=== PATIENT | female | born 1965 | race Caucasian/White ===

== ENCOUNTER 2017-08-25 07:07 | Day surgery (SDC) | payer BC ==
[~2017-08-25 07:07] MED LIST: Lactated Ringers 1,000 ML IV SCH; Lidocaine 1% 2 ML ONE; Lidocaine 1%/Sod Bicarbonate in NS 8.4% 1 ML Syringe PRN; Midazolam 1 MG/ML 2 ML SDV ONE; Ondansetron 4 MG/2 ML SDV ONE; Propofol 200 MG/20 ML SDV ONE; Rocuronium 50 MG/5 ML Vial ONE; Sodium Chloride 0.9% 10 ML Syringe FLUSH PRN; ceFAZolin 1 GM Vial ONE; fentaNYL 100 MCG/2 ML SDV ONE
[2017-08-25] MEDS ORDERED: EPINEPHrine 1 MG/ML SDV ONE ×2 (07:22→09:34)
[2017-08-25] MEDS ORDERED: Ropivacaine 0.5% 5 MG/ML 30 ML SDV ONE ×2 (07:22→09:34)
--- NOTE | 2017-08-25 07:40 | PCM.PREANE ---
Preanesthetic Assessment - Anesthesia/Transfusion/Family Hx Anesthesia History: Prior Anesthesia Without Reaction Family History of Anesthesia Reaction: No Transfusion History: No Prior Transfusion(s) - Review of Systems General: No Symptoms Pulmonary: No Symptoms Cardiovascular: No Symptoms Gastrointestinal: No Symptoms Neurological: No Symptoms Other: Reports: None - Physical Assessment NPO Status Date: 08/24/17 NPO Status Time: 00:00 Pulse: 56 O2 Sat by Pulse Oximetry: 99 Respiratory Rate: 24 Blood Pressure: 131/78 Temperature: 36.7 C Height: 1.68 m Weight: 79.787 kg ASA Class: 2 Mental Status: Alert & Oriented x3 Dentition: Reports: Normal Dentition Thyro-Mental Finger Breadths: 3 Mouth Opening Finger Breadths: 3 ROM/Head Extension: Full Lungs: Clear to Auscultation, Normal Respiratory Effort Cardiovascular: Regular Rate, Regular Rhythm, No Murmurs - Lab Values: Laboratory Last Values MRSA (PCR) Negative 08/17/17 15:24 - Imaging/EKG Impressions: on chart Sinus Vitor - Allergies Allergies/Adverse Reactions: Allergies Allergy/AdvReac Type Severity Reaction Status Date / Time cephalexin [From Keflex] Allergy Hives Verified 08/24/17 15:49 - Anesthesia Plan Pre-Op Medication Ordered: None - Acknowledgements Anesthesia Type Planned: General Anesthesia, Regional Block (interscanene block for post-op pain control) Pt an Appropriate Candidate for the Planned Anesthesia: Yes Alternatives and Risks of Anesthesia Discussed w Pt/Guardian: Yes Pt/Guardian Understands and Agrees with Anesthesia Plan: Yes PreAnesthesia Questionnaire HEENT History: Reports: Impaired Vision Cardiovascular History: Reports: None Respiratory History: Reports: None Gastrointestinal History: Reports: GERD, Other (See Below) Other Gastrointestinal History: epigastric, pain, dehydration, nausea/vomiting, duodenal ulcer Genitourinary History: Reports: None METEOROLOGIST LIAISON History: Reports: Endometriosis, Other (See Below), Other OB/BYN History: pelvic pain Musculoskeletal History: Reports: None, Other (See Below) Other Musculoskeletal History: R hip pain, L knee replacement. left shoulder pain, left knee pain, left rotator cuff tear Neurological History: Reports: None Psychiatric History: Reports: Anxiety, Other (See Below) Other Psychiatric History: fatigue, insomnia, grieving Endocrine/Metabolic History: Reports: None Hematologic History: Reports: None Immunologic History: Reports: None Oncologic (Cancer) History: Reports: None Dermatologic History: Reports: None - Past Surgical History Head Surgeries/Procedures: Reports: None Cardiovascular Surgical History: Reports: None Respiratory Surgical History: Reports: None GI Surgical History: Reports: Appendectomy, Cholecystectomy, Colonoscopy Female Surgical History: Reports: Breast Reduction, Hysterectomy Male Surgical History: Reports: None Endocrine Surgical History: Reports: None Neurological Surgical History: Reports: None Musculoskeletal Surgical History: Reports: Carpal Tunnel, Joint Replacement Oncologic Surgical History: Reports: None Dermatological Surgical History: Reports: None - SUBSTANCE USE Smoking Status *Q: Never Smoker Tobacco Use Within Last Twelve Months: No Second Hand Smoke Exposure: No Days Per Week of Alcohol Use: 1 Number of Drinks Per Day: 1 Total Drinks Per Week: 1 Recreational Drug Use History: No - HOME MEDS Home Medications: Home Meds Acetaminophen/HYDROcodone [[place] 325-5 MG] 1 - 2 tab PO Q6H PRN #40 tablet 08/24 [Rx] Cyclobenzaprine [Flexeril] 10 mg PO Q8H PRN #40 tablet 08/24/17 [Rx] Escitalopram Oxalate 10 mg PO DAILY 08/24/17 [History] - CURRENT (IN HOUSE) MEDS Current Meds: Current Medications Lactated Ringer's (Ringers, Lactated) 1,000 mls @ 125 mls/hr IV ASDIRECTED VASILE Stop: 08/25/17 23:00 Clindamycin Phosphate 900 mg/ (Dextrose/Water) 106 mls @ 212 mls/hr IV ONETIME ONE Stop: 08/25/17 08:29 Lidocaine/Sodium Bicarbonate (Buffered Lidocaine 1% In Ns 8.4%) 0.25 ml .XX ONETIME PRN PRN Reason: Prior to IV Start Stop: 08/25/17 18:00 Sodium Chloride (Saline Flush) 10 ml FLUSH ASDIRECTED PRN PRN Reason: Keep Vein Open Stop: 08/25/17 18:00 Discontinued Medications Cefazolin Sodium (Ancef) Confirm Administered Dose 2 gm .ROUTE .STK-MED ONE Stop: 08/25/17 07:06 Epinephrine HCl (Adrenalin 1:1000) Confirm Administered Dose 1 mg .ROUTE .STK- MED ONE Stop: 08/25/17 07:23 Fentanyl (Sublimaze) Confirm Administered Dose 100 mcg .ROUTE .STK-MED ONE Stop: 08/25/17 07:01 Lidocaine HCl (Xylocaine-Mpf 1%) Confirm Administered Dose 6 mls @ as directed .ROUTE .STK-MED ONE Stop: 08/25/17 07:02 Midazolam HCl (Versed 1 Mg/Ml) Confirm Administered Dose 2 mg .ROUTE .STK-MED ONE Stop: 08/25/17 07:02 Ondansetron HCl (Zofran) Confirm Administered Dose 4 mg .ROUTE .STK-MED ONE Stop: 08/25/17 07:01 Propofol (Diprivan 20 Ml) Confirm Administered Dose 200 mg .ROUTE .STK-MED ONE Stop: 08/25/17 07:01 Rocuronium Clyo (Zemuron) Confirm Administered Dose 50 mg .ROUTE .STK-MED ONE Stop: 08/25/17 07:01 Ropivacaine (Naropin 0.5%) Confirm Administered Dose 30 ml .ROUTE .STK-MED ONE Stop: 08/25/17 07:23
[2017-08-25] MEDS ORDERED: Clindamycin Phosphate 900 MG in Dextrose 5% in Water 100 ML IV ONE ×2 (08:00)
[2017-08-25] MEDS ORDERED: Bupivacaine 0.25% 30 ML SDV ONE (08:00)
[2017-08-25] MEDS ORDERED: EPINEPHrine 1 MG/ML 30 ML MDV ONE (08:00)
[2017-08-25] MEDS ORDERED: Lidocaine 1% 4 ML ONE (09:34)
[2017-08-25] MEDS ORDERED: HYDROmorphone 0.5 MG/0.5 ML Syringe IVPUSH PRN (10:24)
[2017-08-25] MEDS ORDERED: fentaNYL 100 MCG/2 ML SDV IVPUSH PRN (10:24)
--- NOTE | 2017-08-25 10:27 | PCM.POSTAN ---
POST ANESTHESIA ASSESSMENT - MENTAL STATUS Mental Status: Alert, Oriented - VITAL SIGNS Pulse Rate: 83 SaO2: 96 Resp Rate: 8 Blood Pressure: 105/80 Temperature: 36.7 C - RESPIRATORY Respiratory Status: Respiratory Rate WNL, Airway Patent, O2 Saturation Stable, Supplemental Oxygen - CARDIOVASCULAR CV Status: Pulse Rate WNL, Blood Pressure Stable - GASTROINTESTINAL GI Status: No Symptoms - PAIN Pain Score: 0 - POST OP HYDRATION Hydration Status: Adequate & Stable - OBSERVATIONS Free Text/Narrative:: no anesthesia complications noted
[2017-08-25] MEDS ORDERED: Meperidine PF 50 MG/ML Syringe IVPUSH ONE (10:30)
--- NOTE | 2017-08-25 10:38 | PCM.SN ---
- Free Text/Narrative Note: Note: 08/25/2017 1035 144/84 60 100% 15 Surgeon and pt request post-op pain control for left shoulder surgery risk of block failure, facial numbness, site infection, and chronic pain discussed with pt and agreed to proceed. All standard monitors est. EKG, BP, Pulse Ox, 2L O2 and 2ml versed, 1ml fentanyl pre-op dx. left shoulder pain post-op dx left shoulder arthroscopy pt for interscalene block placement all standard monitors est. pt ID time out performed IV sedation 2ml versed, 1ml fentanyl, 2L NC O2, sterile prep and drape of left neck and shoulder U/S placed with visualization of brachial plexus from clavicle to cricoid local skin infiltration 22ga. Stimplex A insulated needle visualized at brachial plexus nerve stimulator at .9 Radha Amps stop at .4 Radha Amps with good bicep twitch with 1ml NaCl and lose of twitch neg aspirations every 5ml of 0.5% ropivacaine and 1:200,000 epi total of 30ml injected all done with U/S guidance needle withdrawn no complications noted pt tolerated procedure well block settling in start procedure at 0752 end procedure at 0820 117/70 87 100% 17
[2017-08-25 12:30] VITALS: BP 114/78
--- NOTE | 2017-08-30 07:07 | PCM.OPNOTE ---
- General Post-Op/Procedure Note Date of Surgery/Procedure: 08/25/17 Operative Procedure(s): left shoulder video arthroscopy with rotator cuff repair , subacromial decompression and limited debridement Pre Op Diagnosis: left shoulder rotator cuff tear with impingement Post-Op Diagnosis: Same Anesthesia Technique: General ET Tube, Regional Block Primary Surgeon: Carlos Dykes Anesthesia Provider: Darek Guerrero Pure Pak Machine Operator: Lisa Roy EBL in mLs: 5 Complications: None Condition: Good
--- NOTE | 2017-08-30 08:06 | OR ---
DATE OF OPERATION: 08/25/2017 SURGEON: Carlos Dykes MD OPERATION PERFORMED: Left shoulder video arthroscopy with rotator cuff repair, subacromial decompression, and limited debridement. PREOPERATIVE DIAGNOSIS: Left shoulder rotator cuff tear with impingement. POSTOPERATIVE DIAGNOSIS: Left shoulder rotator cuff tear with impingement. ANESTHESIA: General endotracheal intubation with regional interscalene block. ANESTHESIA PROVIDER: Darek Guerrero CRNA. [employer] ADMINISTRATOR: Lisa Roy PA-C. ESTIMATED BLOOD LOSS: 5 mL. COMPLICATIONS: None. CONDITION: Stable. DESCRIPTION OF PROCEDURE: The patient was identified in the preop holding area. Proper site was marked and identified by the surgeon. The patient was taken back to the operating theater, where after adequate anesthesia, the patient was placed in the lazy right lateral decubitus position. A wedge was placed posteriorly. The patient was secured to the table. All bony prominences were well padded. At this time, the left upper extremity was sterilely prepped and draped in the usual sterile fashion. OR-wide time-out was performed. The patient received 2 grams of IV Ancef. 12 pounds of traction was then applied to the left upper extremity. At this time, a posterior incision was made and scope trocar was introduced to the glenohumeral joint. There were no signs of chondromalacia. There was noted to be significant fraying of the labrum. Subscapularis tendon was intact. Biceps tendon was intact. There was erythema, otherwise no signs of pathology throughout the joint, other than the undersurface of the rotator cuff and supraspinatus were noted to have significant thinning with a small area of full- thickness tear. At this time, attention was turned to the subacromial space. Subacromial space was identified. A limited debridement was then done of bursal tissue as well as old rotator cuff tissue. There was noted to be a small full- thickness tear in the supraspinatus near its distal attachment. At this time, this was resected back to a good edge to allow for reattachment. A good bony bleeding bed was then prepared as well. At this time, it was decided that a lateral-only repair could possibly be done. At this time, FiberTape was placed in a horizontal mattress stitch fashion through the tear. 4.75 mm Arthrex SwiveLock anchor was then placed out laterally and attention was applied to the FiberTape. The Arthrex SwiveLock anchor was then placed in the bone and it was noted to have good tightened repair of the rotator cuff. There was noted to be a small anterior portion that still had a small step-off. So, at this time, a second 4.75 SwiveLock anchor was placed out laterally. A limb of the FiberWire was then placed through the tear and then was tied with the use of an arthroscopic knot pusher. It was found to have adequate complete watertight repair of the entire tear at this time. At this time, the patient was noted to have a type 2/3 acromion with downsloping of the anterior portion of the acromion. At this time, a 4.0 full-radius bur was used for resection of the undersurface of the clavicle down to a type 1 acromion. It was noted to have significant improvement of its slope. At this time, excess saline was drained from the shoulder. 3-0 nylon simple suture was used for closure of the skin. The patient was placed in a sterile soft dressing and a pillow sling, and sent to PACU in a stable condition. Note: Assist was needed in this case secondary to extra hands for holding the patient and retraction throughout the case as well as closure. NEVILLE /[id number] HAZEL
== END 2017-08-25 13:15 | disposition home or self-care (01) ==
LOC: JD.SDS 07:07
PROVIDERS: ATTEND Orthopaedic Surgery
DX: M75.102 Unspecified rotator cuff tear or rupture of left shoulder, not specified as traumatic (principal); M75.42 Impingement syndrome of left shoulder; F41.9 Anxiety disorder, unspecified; G89.29 Other chronic pain; M25.512 Pain in left shoulder; M25.562 Pain in left knee; M25.551 Pain in right hip; Z88.0 Allergy status to penicillin; Z88.1 Allergy status to other antibiotic agents; Z90.49 Acquired absence of other specified parts of digestive tract; Z90.710 Acquired absence of both cervix and uterus; Z96.652 Presence of left artificial knee joint; Z98.890 Other specified postprocedural states; Z78.9 Other specified health status
CPT/HCPCS: 29822; 29826; 29827; 64415; 87641; J0171; J0690; J2250; J2405; J2795; J3010; J3490; J7060; J7120; 01638; J2704

== ENCOUNTER 2021-02-08 12:08 | Inpatient (IN) | payer BC ==
[2021-02-08] MEDS ORDERED: HYDROmorphone 0.5 MG/0.5 ML Syringe IM ONE ×2 (12:28→13:48)
--- NOTE | 2021-02-08 13:23 | EDM.PDOC ---
ED HPI GENERAL MEDICAL PROBLEM - General Chief Complaint: Lower Extremity Injury/Pain Stated Complaint: FELL ON LEFT LEG Time Seen by Provider: 02/08/21 12:23 Source of Information: Reports: Patient, RN Notes Reviewed History Limitations: Reports: No Limitations - History of Present Illness INITIAL COMMENTS - FREE TEXT/NARRATIVE: Patient is a 55-year-old female who presents to the ER for the evaluation of her left leg injury. Patient not she was out last night, playing pool, when she was sitting on a stool, she is normally sure if her foot got caught in the ring of the stool, but she ended up falling forward off of the stool. She landed directly onto her left leg. She states that she has been having pain in her mid thigh since then. Does have a history of a knee replacement with revision, and a dulce placed within the left femur. States that her hip seems okay, and she is able to move her foot at the ankle without difficulty. She has been using some Advil or Aleve at home, but states the pain is not getting much better. She states is very painful to bear weight on the leg much at all. She was concerned due to the previous surgeries, that she may have rebroke something. Patient denies any other sick-like symptoms, fever/chills, cough/shortness of breath, nausea/vomiting/diarrhea. - Related Data Allergies Allergy/AdvReac Type Severity Reaction Status Date / Time cephalexin [From Keflex] Allergy Hives Verified 02/08/21 12:22 Home Meds: Home Meds Omeprazole 10 mg PO DAILY 02/08/21 [History] Vortioxetine Hydrobromide [Trintellix] 10 mg PO DAILY 02/08/21 [History] Past Medical History HEENT History: Reports: Impaired Vision Cardiovascular History: Reports: None Respiratory History: Reports: None Gastrointestinal History: Reports: GERD Other Gastrointestinal History: epigastric, pain, dehydration, nausea/vomiting, duodenal ulcer Genitourinary History: Reports: None UI SOFTWARE DEVELOPER History: Reports: Endometriosis, Other (See Below), Other UI SOFTWARE DEVELOPER History: pelvic pain Musculoskeletal History: Reports: None, Other (See Below) Other Musculoskeletal History: R hip pain, L knee replacement. left shoulder pain, left knee pain, left rotator cuff tear Neurological History: Reports: None Psychiatric History: Reports: Anxiety Other Psychiatric History: fatigue, insomnia, grieving Endocrine/Metabolic History: Reports: None Hematologic History: Reports: None Immunologic History: Reports: None Oncologic (Cancer) History: Reports: None Dermatologic History: Reports: None - Infectious Disease History Infectious Disease History: Reports: None - Past Surgical History Head Surgeries/Procedures: Reports: None Cardiovascular Surgical History: Reports: None Respiratory Surgical History: Reports: None GI Surgical History: Reports: Appendectomy, Bariatric Procedure, Cholecystectomy, Colonoscopy Female Surgical History: Reports: Breast Reduction, Hysterectomy Endocrine Surgical History: Reports: None Neurological Surgical History: Reports: None Musculoskeletal Surgical History: Reports: Arthroscopic Knee, Shoulder Surgery Oncologic Surgical History: Reports: None Dermatological Surgical History: Reports: None Social & Family History - Tobacco Use Tobacco Use Status *Q: Current Every Day Tobacco User Years of Tobacco use: 8 Packs/Tins Daily: 1 - Caffeine Use Caffeine Use: Reports: Soda Review of Systems - Review of Systems Review Of Systems: Comprehensive ROS is negative, except as noted in HPI. ED EXAM, GENERAL - Physical Exam Exam: See Below Exam Limited By: No Limitations General Appearance: Alert, WD/WN, No Apparent Distress Respiratory/Chest: No Respiratory Distress, Lungs Clear, Normal Breath Sounds, No Accessory Muscle Use, Chest Non-Tender Cardiovascular: Normal Peripheral Pulses, Regular Rate, Rhythm, No Edema Peripheral Pulses: 2+: Radial (L), Radial (R), Dorsalis Pedis (L), Dorsalis Pedis (R) Extremities: Normal Inspection, Normal Capillary Refill, Limited Range of Motion (of left leg, seems to be more difficult to bend knee. hip seems okay with ROM and ankle/foot with ROM) Neurological: Alert, Oriented, Normal Cognition, No Motor/Sensory Deficits Psychiatric: Normal Affect, Normal Mood Skin Exam: Warm, Dry, Intact, Normal Color, No Rash #1 Interpretation EKG Date: 02/08/21 Time: 15:12 Rhythm: NSR Rate (Beats/Min): 70 [place]: Normal P-Wave: Present QRS: Normal ST-T: Normal QT: Normal Comparison: NA - No Prior EKG EKG Interpretation Comments: No obvious ischemia or acute ST changes noted, reviewed by myself and Dr. Avilez. Course - Vital Signs Last Recorded V/S: Last Vital Signs Temp 97.4 F 02/08/21 12:20 Pulse 75 02/08/21 12:20 Resp 18 02/08/21 12:20 BP 144/116 H 02/08/21 12:20 Pulse Ox 100 02/08/21 12:20 - Orders/Labs/Meds Orders: Active Orders 24 hr Category Date Time Status Patient Status [ADT] Routine ADT 02/08/21 15:22 Active EKG Documentation Completion [RC] STAT Care 02/08/21 14:41 Active Peripheral IV Care [RC] . DIRECTED Care 02/08/21 14:47 Active Chest 1V Frontal [CR] Stat Exams 02/08/21 14:41 Taken Hip wo Cont Lt [CT] Stat Exams 02/08/21 13:44 Taken TYPE AND SCREEN [BBK] Stat Lab 02/08/21 14:56 Received UA W/MICROSCOPIC [URIN] Stat Lab 02/08/21 14:57 Ordered Sodium Chloride 0.9% [Normal Saline] 1,000 ml Med 02/08/21 14:47 Active IV ONETIME Sodium Chloride 0.9% [Saline Flush] Med 02/08/21 14:47 Active 10 ml FLUSH ASDIRECTED PRN Peripheral IV Insertion Adult [OM.PC] Routine Oth 02/08/21 14:47 Ordered Medication Orders Sodium Chloride (Normal Saline) 1,000 mls @ 150 mls/hr IV ONETIME ONE Stop: 02/08/21 21:26 Last Admin: 02/08/21 15:20 Dose: 150 mls/hr Documented by: SIRISHA Sodium Chloride (Sodium Chloride 0.9% 10 Ml Syringe) 10 ml FLUSH ASDIRECTED PRN PRN Reason: Keep Vein Open Last Admin: 02/08/21 15:29 Dose: 10 ml Documented by: SIRISHA Labs: Laboratory Tests 02/08/21 02/08/21 02/08/21 Range/Units 14:42 14:56 14:56 WBC 9.50 (3.98-10.04) K/mm3 RBC 4.73 (3.98-5.22) M/mm3 Hgb 10.6 L D (11.2-15.7) gm/dl Hct 35.5 (34.1-44.9) % MCV 75.1 L (79.4-94.8) fl MCH 22.4 L (25.6-32.2) pg MCHC 29.9 L (32.2-35.5) g/dl RDW Std Deviation 44.1 (36.4-46.3) fL Plt Count 479 H D (182-369) K/mm3 MPV 9.9 (9.4-12.3) fl Neut % (Auto) 72.5 H (34.0-71.1) % Lymph % (Auto) 18.3 L (19.3-51.7) % [place] % (Auto) 8.4 (4.7-12.5) % Eos % (Auto) 0.2 L (0.7-5.8) Baso % (Auto) 0.4 (0.1-1.2) % Neut # (Auto) 6.88 H (1.56-6.13) K/mm3 Lymph # (Auto) 1.74 (1.18-3.74) K/mm3 [place] # (Auto) 0.80 H (0.24-0.36) K/mm3 Eos # (Auto) 0.02 L (0.04-0.36) K/mm3 Baso # (Auto) 0.04 (0.01-0.08) K/mm3 Manual Slide Review Abnormal smear PT 9.9 (9.7-12.0) SECONDS INR < 0.93 APTT 24.0 (21.7-31.4) SECONDS Sodium (136-145) mEq/L Potassium (3.5-5.1) mEq/L Chloride (98-107) mEq/L Carbon Dioxide (21-32) mEq/L Anion Gap (5-15) BUN (7-18) mg/dL Creatinine (0.55-1.02) mg/dL Est Cr Clr Drug Dosing Estimated GFR (MDRD) (>60) mL/min BUN/Creatinine Ratio (14-18) Glucose (74-106) mg/dL Calcium (8.5-10.1) mg/dL Total Bilirubin (0.2-1.0) mg/dL AST (15-37) U/L ALT (14-59) U/L Alkaline Phosphatase (46-116) U/L Total Protein (6.4-8.2) g/dl Albumin (3.4-5.0) g/dl Globulin gm/dL Albumin/Globulin Ratio (1-2) Influenza Type A RNA Negative (NEGATIVE) Influenza Type B RNA Negative (NEGATIVE) SARS-CoV-2 RNA (NOA) Positive H (NEGATIVE) Blood Type 02/08/21 02/08/21 Range/Units 14:56 14:56 WBC (3.98-10.04) K/mm3 RBC (3.98-5.22) M/mm3 Hgb (11.2-15.7) gm/dl Hct (34.1-44.9) % MCV (79.4-94.8) fl MCH (25.6-32.2) pg MCHC (32.2-35.5) g/dl RDW Std Deviation (36.4-46.3) fL Plt Count (182-369) K/mm3 MPV (9.4-12.3) fl Neut % (Auto) (34.0-71.1) % Lymph % (Auto) (19.3-51.7) % [place] % (Auto) (4.7-12.5) % Eos % (Auto) (0.7-5.8) Baso % (Auto) (0.1-1.2) % Neut # (Auto) (1.56-6.13) K/mm3 Lymph # (Auto) (1.18-3.74) K/mm3 [place] # (Auto) (0.24-0.36) K/mm3 Eos # (Auto) (0.04-0.36) K/mm3 Baso # (Auto) (0.01-0.08) K/mm3 Manual Slide Review PT (9.7-12.0) SECONDS INR APTT (21.7-31.4) SECONDS Sodium 142 (136-145) mEq/L Potassium 3.7 (3.5-5.1) mEq/L Chloride 104 (98-107) mEq/L Carbon Dioxide 26 (21-32) mEq/L Anion Gap 15.7 H (5-15) BUN 7 (7-18) mg/dL Creatinine 0.8 (0.55-1.02) mg/dL Est Cr Clr Drug Dosing TNP Estimated GFR (MDRD) > 60 (>60) mL/min BUN/Creatinine Ratio 8.8 L (14-18) Glucose 98 (74-106) mg/dL Calcium 9.3 (8.5-10.1) mg/dL Total Bilirubin 0.9 (0.2-1.0) mg/dL AST 29 (15-37) U/L ALT 42 (14-59) U/L Alkaline Phosphatase 128 H (46-116) U/L Total Protein 8.2 (6.4-8.2) g/dl Albumin 4.3 (3.4-5.0) g/dl Globulin 3.9 gm/dL Albumin/Globulin Ratio 1.1 (1-2) Influenza Type A RNA (NEGATIVE) Influenza Type B RNA (NEGATIVE) SARS-CoV-2 RNA (NOA) (NEGATIVE) Blood Type A POSITIVE Meds: Medications Generic Name Dose Route Start Last Admin Trade Name Freq PRN Reason Stop Dose Admin Sodium Chloride 1,000 mls @ 150 mls/hr 02/08/21 14:47 02/08/21 15:20 Normal Saline IV 02/08/21 21:26 150 mls/hr ONETIME ONE Administration Sodium Chloride 10 ml 02/08/21 14:47 02/08/21 15:29 Sodium Chloride 0.9% 10 Ml Syringe FLUSH 10 ml ASDIRECTED PRN Administration Keep Vein Open Discontinued Medications Generic Name Dose Route Start Last Admin Trade Name Freq PRN Reason Stop Dose Admin Hydromorphone HCl 0.5 mg 02/08/21 12:28 02/08/21 12:46 Hydromorphone 0.5 Mg/0.5 Ml Syringe IM 02/08/21 12:29 0.5 mg ONETIME ONE Administration Hydromorphone HCl 0.5 mg 02/08/21 13:48 02/08/21 13:51 Hydromorphone 0.5 Mg/0.5 Ml Syringe IM 02/08/21 13:49 0.5 mg ONETIME ONE Administration - Re-Assessments/Exams Free Text/Narrative Re-Assessment/Exam: 02/08/21 13:22 Patient presents to the ER for her left leg injury. X-rays were obtained at time of triage, the patient was given 0.5 mg IM Dilaudid for ongoing pain management. We will go ahead and get a femur x-ray and a left knee x-ray for evaluation. 02/08/21 13:39 X-rays were done, and reviewed by myself and Dr. Avilez, there are no acute fractures or other bony abnormalities appreciated. However official radiology read is still pending. 02/08/21 13:48 The patient's x-rays were read by radiology, and he does question a slightly impacted subcapital fracture of the patient's left femur/hip area. We will go ahead and get a CT of her hip for further investigation, still states that she cannot bear weight on the leg due to pain. She will be given another 0.5 mg IM injection of Dilaudid. Fortunately Meño Dowling is electrical controls assembler for today's purposes after the CT has been obtained. We will call him after the fact, and see what he would want to do for management if hip does seem to be broken with an impaction fracture. 02/08/21 14:[address] does demonstrate an acute intertrochanteric fracture of the left fe mur. Preop labs have been ordered, with a EKG and a checks x-ray for clearance however she is a fairly healthy individual and has no other cardiac abnormalities. Dr. Dykes states that he would likely do her surgery in the morning and discharge her home if she is feeling well. We will go ahead and admit to his service for ongoing management. 02/08/21 15:36 Patient's labs have started to return, CBC is essentially unremarkable, metabolic panel essentially unremarkable. Her Covid screen did come back positive at today's visit however I do believe this is still testing positive from her infection back in August. She is asymptomatic, having no sick-like symptoms whatsoever. As far as I am concerned, this is lingering positive from her active infection back in August. Departure - Departure Time of Disposition: 14:58 Disposition: Refer to Observation Condition: Good Clinical Impression: Closed intertrochanteric fracture of left femur Qualifiers: Encounter type: initial encounter Fracture alignment: nondisplaced Qualified Code(s): S72.145A - Nondisplaced intertrochanteric fracture of left femur, initial encounter for closed fracture - Discharge Information Referrals: PCP,None [Primary Care Provider] - Forms: ED Department Discharge Sepsis Event Note (ED) - Evaluation Sepsis Screening Result: No Definite Risk - Focused Exam Vital Signs: Vital Signs Temp Pulse Resp BP Pulse Ox 02/08/21 12:20 97.4 F 75 18 144/116 H 100 - My Orders Last 24 Hours: My Active Orders 02/08/21 13:44 Hip wo Cont Lt [CT] Stat 02/08/21 14:41 EKG Documentation Completion [RC] STAT Chest 1V Frontal [CR] Stat 02/08/21 14:47 Peripheral IV Care [RC] . DIRECTED Sodium Chloride 0.9% [Normal Saline] 1,000 ml IV ONETIME Sodium Chloride 0.9% [Saline Flush] 10 ml FLUSH ASDIRECTED PRN Peripheral IV Insertion Adult [OM.PC] Routine 02/08/21 14:56 TYPE AND SCREEN [BBK] Stat 02/08/21 14:57 UA W/MICROSCOPIC [URIN] Stat 02/08/21 15:22 Patient Status [ADT] Routine - Assessment/Plan Last 24 Hours: My Active Orders 02/08/21 13:44 Hip wo Cont Lt [CT] Stat 02/08/21 14:41 EKG Documentation Completion [RC] STAT Chest 1V Frontal [CR] Stat 02/08/21 14:47 Peripheral IV Care [RC] . DIRECTED Sodium Chloride 0.9% [Normal Saline] 1,000 ml IV ONETIME Sodium Chloride 0.9% [Saline Flush] 10 ml FLUSH ASDIRECTED PRN Peripheral IV Insertion Adult [OM.PC] Routine 02/08/21 14:56 TYPE AND SCREEN [BBK] Stat 02/08/21 14:57 UA W/MICROSCOPIC [URIN] Stat 02/08/21 15:22 Patient Status [ADT] Routine
--- NOTE | 2021-02-08 13:40 | CR ---
Left knee: 4 views of the left knee were obtained. Comparison: No prior knee exam is available. Knee prosthesis is seen. Alignment is within normal limits. Osteopenia is present. No acute fracture, dislocation or other bony abnormality is appreciated. Impression: 1. Knee prosthesis. Osteopenia. 2. No acute abnormality is appreciated. Diagnostic code #2
--- NOTE | 2021-02-08 13:40 | CR ---
Left femur: AP and lateral views of the left femur were obtained. Comparison: No previous available Knee prosthesis is seen. Components appear aligned at the articular region. There is irregularity within the subcapital region of the left hip which is felt compatible with slightly impacted fracture. Osteopenia is present. No other acute abnormality is appreciated. Impression: 1. Left knee prosthesis. 2. Mildly impacted subcapital fracture within the left hip. Diagnostic code #3
[2021-02-08] MEDS ORDERED: Sodium Chloride 0.9% 10 ML Syringe FLUSH PRN (14:47)
[2021-02-08] MEDS ORDERED: Sodium Chloride 0.9% 1,000 ML IV ONE (14:47)
[2021-02-08 15:33] LABS: CORONAVIRUS COVID-19 NAA POSITIVE (NEGATIVE)
[2021-02-08] MEDS ORDERED: Ondansetron 4 MG/2 ML SDV IVPUSH PRN (16:33)
--- NOTE | 2021-02-08 16:58 | CR ---
Chest: Portable view of the chest was obtained. Comparison: No prior chest imaging is available. Heart size and mediastinum are normal. Lungs are clear with no acute parenchymal change. Right shoulder prosthesis is seen. Appearance of old healed left clavicle fracture is noted. Surgical clips are seen within the upper right abdomen. Impression: 1. Findings as noted above. 2. Nothing acute is seen on portable chest x-ray. Diagnostic code #2
[2021-02-08] MEDS: HYDROmorphone 0.5 MG/0.5 ML Syringe IVPUSH PRN ×2 (17:00→20:47)
[2021-02-08] MEDS ORDERED: Aluminum Hydroxide/Magnesium Hydroxide/Simethicone Susp 30 ML Cup PO ONE (20:41)
[2021-02-08] MEDS: Sodium Chloride 0.9% 1,000 ML IV SCH (21:34)
[2021-02-09] MEDS: Morphine 2 MG/ML SYRINGE IVPUSH PRN ×2 (00:37→04:43)
[2021-02-09] MEDS: Sodium Chloride 0.9% 1,000 ML IV SCH (04:20)
[2021-02-09] MEDS ORDERED: oxyCODONE 5 MG Tab PO PRN (06:54)
[2021-02-09] MEDS ORDERED: Cyclobenzaprine 10 MG Tab PO PRN (06:54)
[2021-02-09] MEDS ORDERED: Ondansetron 4 MG/2 ML SDV IVPUSH PRN (06:54)
[2021-02-09] MEDS ORDERED: Bisacodyl 5 MG Tab PO PRN (06:54)
[2021-02-09] MEDS ORDERED: Naloxone 0.4 MG/ML SDV IVPUSH PRN (06:54)
[2021-02-09] MEDS ORDERED: Magnesium Hydroxide 400 MG/5 ML Susp 30 ML Cup PO PRN (06:54)
[2021-02-09] MEDS ORDERED: Sennosides 8.6 MG Tab PO PRN (06:54)
[2021-02-09] MEDS ORDERED: ceFAZolin 2 GM in Premix Bag 1 BAG IV SCH ×2 (07:00→19:00)
[2021-02-09] MEDS ORDERED: Clindamycin Phosphate in D5W 900 MG in Premix Bag 1 BAG IV SCH ×2 (07:00)
--- NOTE | 2021-02-09 07:00 | PCM.HP.2 ---
H&P History of Present Illness - General Date of Service: 02/09/21 Admit Problem/Dx: Admission Diagnosis/Problem Admission Diagnosis/Problem Intertrochanteric fracture of left femur Source of Information: Patient History Limitations: Reports: No Limitations - History of Present Illness Initial Comments - Free Text/Narative: The patient is an otherwise healthy 55-year-old lady who has presented to the emergency department for evaluation of a left leg injury. The patient says that she was on a stool and fell off landing directly on her left leg. The patient says that she was concerned more about her knee than her hip. The patient reports that she has had significant knee surgery with replacement and revision latest in 2013. The patient has been in her usual state of health. She is only taking Trintellix and omeprazole. The patient does not use alcohol or tobacco. Onset of Symptoms: Reports: Sudden Duration of Symptoms: Reports: Hour(s):, Constant Location: Reports: Lower Extremity, Left Quality: Reports: Ache, Burning Severity: Moderate Improves with: Reports: Medication Worsens with: Reports: Movement Context: Reports: Trauma Associated Symptoms: Reports: No Other Symptoms - Related Data Allergies/Adverse Reactions: Allergies Allergy/AdvReac Type Severity Reaction Status Date / Time cephalexin [From Keflex] Allergy Hives Verified 02/08/21 12:22 Home Medications: Home Meds Omeprazole 10 mg PO DAILY 02/08/21 [History] Vortioxetine Hydrobromide [Trintellix] 10 mg PO DAILY 02/08/21 [History] Past Medical History HEENT History: Reports: Impaired Vision Other HEENT History: Glasses Cardiovascular History: Reports: None Respiratory History: Reports: None Gastrointestinal History: Reports: GERD Other Gastrointestinal History: epigastric pain, nausea/vomiting, duodenal ulcer Genitourinary History: Reports: None OFFICE SPECIALIST History: Reports: Endometriosis, Other (See Below), Other OB/BYN History: pelvic pain Musculoskeletal History: Reports: None, Other (See Below) Other Musculoskeletal History: R hip pain, L knee replacement. left shoulder pain, left knee pain, left rotator cuff tear Neurological History: Reports: None Psychiatric History: Reports: Anxiety Other Psychiatric History: fatigue, insomnia, grieving Endocrine/Metabolic History: Reports: None Hematologic History: Reports: None Immunologic History: Reports: None Oncologic (Cancer) History: Reports: None Dermatologic History: Reports: None Other Dermatologic History: Can somewhat easily get hives. - Infectious Disease History Infectious Disease History: Reports: SARS Other Infectious Disease History: Covid in August - Past Surgical History Head Surgeries/Procedures: Reports: None Cardiovascular Surgical History: Reports: None Respiratory Surgical History: Reports: None GI Surgical History: Reports: Appendectomy, Bariatric Procedure, Cholecystectomy, Colonoscopy Female Surgical History: Reports: Breast Reduction, Hysterectomy Endocrine Surgical History: Reports: None Neurological Surgical History: Reports: None Musculoskeletal Surgical History: Reports: Arthroscopic Knee, Shoulder Surgery Oncologic Surgical History: Reports: None Dermatological Surgical History: Reports: None Social & Family History - Family History Neurological: Reports: Dementia - Tobacco Use Tobacco Use Status *Q: Never Tobacco User Years of Tobacco use: 8 Packs/Tins Daily: 1 - Caffeine Use Caffeine Use: Reports: None - Recreational Drug Use Recreational Drug Use: No H&P Review of Systems - Review of Systems: Review Of Systems: See Below General: Reports: No Symptoms HEENT: Reports: No Symptoms Pulmonary: Reports: No Symptoms Cardiovascular: Reports: No Symptoms Gastrointestinal: Reports: No Symptoms Genitourinary: Reports: No Symptoms Musculoskeletal: Reports: Leg Pain Skin: Reports: No Symptoms Psychiatric: Reports: No Symptoms Neurological: Reports: No Symptoms Hematologic/Lymphatic: Reports: No Symptoms Immunologic: Reports: No Symptoms Exam - Exam Exam: See Below - Vital Signs Vital Signs: Last Vital Signs Temp 37.2 C 02/09/21 04:45 Pulse 73 02/09/21 04:45 Resp 14 02/09/21 04:45 BP 147/76 H 02/09/21 04:45 Pulse Ox 97 02/09/21 04:45 Weight: 57.742 kg - Exam Quality Assessment: No: Supplemental Oxygen General: Alert, Oriented, Cooperative HEENT: Conjunctiva Clear, EOMI, Mucosa Moist & Brutus, Posterior Pharynx Clear Neck: Supple, Trachea Midline Lungs: Clear to Auscultation, Normal Respiratory Effort Cardiovascular: Regular Rate, Regular Rhythm GI/Abdominal Exam: Normal Bowel Sounds, Soft, Non-Tender, No Distention (Female) Exam: Deferred Rectal (Female) Exam: Deferred Back Exam: Normal Inspection, Full Range of Motion Extremities: No Pedal Edema. No: Normal Inspection (Tender left knee, surgical scars,), Normal Range of Motion (Decreased range of motion left hip) Skin: Warm, Dry, Intact Neurological: Cranial Nerves Intact, Strength Equal Bilateral, Normal Speech Neuro Extensive - Mental Status: Alert, Oriented x3 Psychiatric: Alert, Normal Affect - Patient Data Lab Results Last 24 hrs: Laboratory Results - last 24 hr 02/08/21 02/08/21 02/08/21 Range/Units 14:42 14:56 14:56 WBC 9.50 (3.98-10.04) K/mm3 RBC 4.73 (3.98-5.22) M/mm3 Hgb 10.6 L D (11.2-15.7) gm/dl Hct 35.5 (34.1-44.9) % MCV 75.1 L (79.4-94.8) fl MCH 22.4 L (25.6-32.2) pg MCHC 29.9 L (32.2-35.5) g/dl RDW Std Deviation 44.1 (36.4-46.3) fL Plt Count 479 H D (182-369) K/mm3 MPV 9.9 (9.4-12.3) fl Neut % (Auto) 72.5 H (34.0-71.1) % Lymph % (Auto) 18.3 L (19.3-51.7) % Edwards % (Auto) 8.4 (4.7-12.5) % Eos % (Auto) 0.2 L (0.7-5.8) Baso % (Auto) 0.4 (0.1-1.2) % Neut # (Auto) 6.88 H (1.56-6.13) K/mm3 Lymph # (Auto) 1.74 (1.18-3.74) K/mm3 Edwards # (Auto) 0.80 H (0.24-0.36) K/mm3 Eos # (Auto) 0.02 L (0.04-0.36) K/mm3 Baso # (Auto) 0.04 (0.01-0.08) K/mm3 Manual Slide Review Abnormal smear PT 9.9 (9.7-12.0) SECONDS INR < 0.93 APTT 24.0 (21.7-31.4) SECONDS Sodium (136-145) mEq/L Potassium (3.5-5.1) mEq/L Chloride (98-107) mEq/L Carbon Dioxide (21-32) mEq/L Anion Gap (5-15) BUN (7-18) mg/dL Creatinine (0.55-1.02) mg/dL Est Cr Clr Drug Dosing Estimated GFR (MDRD) (>60) mL/min BUN/Creatinine Ratio (14-18) Glucose (74-106) mg/dL Calcium (8.5-10.1) mg/dL Total Bilirubin (0.2-1.0) mg/dL AST (15-37) U/L ALT (14-59) U/L Alkaline Phosphatase (46-116) U/L Total Protein (6.4-8.2) g/dl Albumin (3.4-5.0) g/dl Globulin gm/dL Albumin/Globulin Ratio (1-2) Urine Color (Yellow) Urine Appearance (Clear) Urine pH (5.0-8.0) Ur Specific [place] (1.005-1.030) Urine Protein (Negative) Urine Glucose (UA) (Negative) Urine Ketones (Negative) Urine Occult Blood (Negative) Urine Nitrite (Negative) Urine Bilirubin (Negative) Urine Urobilinogen (0.2-1.0) Ur Leukocyte Esterase (Negative) Urine RBC (0-5) /hpf Urine WBC (0-5) /hpf Ur Squamous Epith Cells (0-5) /hpf Urine Bacteria (FEW) /hpf Urine Mucus (FEW) /hpf Influenza Type A RNA Negative (NEGATIVE) Influenza Type B RNA Negative (NEGATIVE) SARS-CoV-2 RNA (NOA) Positive H (NEGATIVE) MRSA (PCR) Blood Type Gel Antibody Screen 02/08/21 02/08/21 02/08/21 Range/Units 14:56 14:56 16:58 WBC (3.98-10.04) K/mm3 RBC (3.98-5.22) M/mm3 Hgb (11.2-15.7) gm/dl Hct (34.1-44.9) % MCV (79.4-94.8) fl MCH (25.6-32.2) pg MCHC (32.2-35.5) g/dl RDW Std Deviation (36.4-46.3) fL Plt Count (182-369) K/mm3 MPV (9.4-12.3) fl Neut % (Auto) (34.0-71.1) % Lymph % (Auto) (19.3-51.7) % Edwards % (Auto) (4.7-12.5) % Eos % (Auto) (0.7-5.8) Baso % (Auto) (0.1-1.2) % Neut # (Auto) (1.56-6.13) K/mm3 Lymph # (Auto) (1.18-3.74) K/mm3 Edwards # (Auto) (0.24-0.36) K/mm3 Eos # (Auto) (0.04-0.36) K/mm3 Baso # (Auto) (0.01-0.08) K/mm3 Manual Slide Review PT (9.7-12.0) SECONDS INR APTT (21.7-31.4) SECONDS Sodium 142 (136-145) mEq/L Potassium 3.7 (3.5-5.1) mEq/L Chloride 104 (98-107) mEq/L Carbon Dioxide 26 (21-32) mEq/L Anion Gap 15.7 H (5-15) BUN 7 (7-18) mg/dL Creatinine 0.8 (0.55-1.02) mg/dL Est Cr Clr Drug Dosing TNP Estimated GFR (MDRD) > 60 (>60) mL/min BUN/Creatinine Ratio 8.8 L (14-18) Glucose 98 (74-106) mg/dL Calcium 9.3 (8.5-10.1) mg/dL Total Bilirubin 0.9 (0.2-1.0) mg/dL AST 29 (15-37) U/L ALT 42 (14-59) U/L Alkaline Phosphatase 128 H (46-116) U/L Total Protein 8.2 (6.4-8.2) g/dl Albumin 4.3 (3.4-5.0) g/dl Globulin 3.9 gm/dL Albumin/Globulin Ratio 1.1 (1-2) Urine Color (Yellow) Urine Appearance (Clear) Urine pH (5.0-8.0) Ur Specific [place] (1.005-1.030) Urine Protein (Negative) Urine Glucose (UA) (Negative) Urine Ketones (Negative) Urine Occult Blood (Negative) Urine Nitrite (Negative) Urine Bilirubin (Negative) Urine Urobilinogen (0.2-1.0) Ur Leukocyte Esterase (Negative) Urine RBC (0-5) /hpf Urine WBC (0-5) /hpf Ur Squamous Epith Cells (0-5) /hpf Urine Bacteria (FEW) /hpf Urine Mucus (FEW) /hpf Influenza Type A RNA (NEGATIVE) Influenza Type B RNA (NEGATIVE) SARS-CoV-2 RNA (NOA) (NEGATIVE) MRSA (PCR) Negative Blood Type A POSITIVE Gel Antibody Screen Negative 02/08/21 02/09/21 02/09/21 Range/Units 18:52 06:16 06:16 WBC 5.31 (3.98-10.04) K/mm3 RBC 3.97 L (3.98-5.22) M/mm3 Hgb 8.9 L D (11.2-15.7) gm/dl Hct 30.4 L (34.1-44.9) % MCV 76.6 L (79.4-94.8) fl MCH 22.4 L (25.6-32.2) pg MCHC 29.3 L (32.2-35.5) g/dl RDW Std Deviation 44.0 (36.4-46.3) fL Plt Count 389 H D (182-369) K/mm3 MPV 9.8 (9.4-12.3) fl Neut % (Auto) 65.5 (34.0-71.1) % Lymph % (Auto) 18.8 L (19.3-51.7) % Edwards % (Auto) 12.8 H (4.7-12.5) % Eos % (Auto) 2.1 (0.7-5.8) Baso % (Auto) 0.6 (0.1-1.2) % Neut # (Auto) 3.48 (1.56-6.13) K/mm3 Lymph # (Auto) 1.00 L (1.18-3.74) K/mm3 Edwards # (Auto) 0.68 H (0.24-0.36) K/mm3 Eos # (Auto) 0.11 (0.04-0.36) K/mm3 Baso # (Auto) 0.03 (0.01-0.08) K/mm3 Manual Slide Review PT (9.7-12.0) SECONDS INR APTT (21.7-31.4) SECONDS Sodium 142 (136-145) mEq/L Potassium 4.0 (3.5-5.1) mEq/L Chloride 108 H (98-107) mEq/L Carbon Dioxide 26 (21-32) mEq/L Anion Gap 12.0 (5-15) BUN 4 L (7-18) mg/dL Creatinine 0.6 (0.55-1.02) mg/dL Est Cr Clr Drug Dosing 95.43 Estimated GFR (MDRD) > 60 (>60) mL/min BUN/Creatinine Ratio 6.7 L (14-18) Glucose 95 (74-106) mg/dL Calcium 8.2 L (8.5-10.1) mg/dL Total Bilirubin 0.6 (0.2-1.0) mg/dL AST 93 H (15-37) U/L ALT 56 (14-59) U/L Alkaline Phosphatase 132 H (46-116) U/L Total Protein 5.9 L (6.4-8.2) g/dl Albumin 2.9 L (3.4-5.0) g/dl Globulin 3.0 gm/dL Albumin/Globulin Ratio 1.0 (1-2) Urine Color Yellow (Yellow) Urine Appearance Clear (Clear) Urine pH 6.0 (5.0-8.0) Ur Specific [place] > or = 1.030 (1.005-1.030) Urine Protein Negative (Negative) Urine Glucose (UA) Negative (Negative) Urine Ketones Negative (Negative) Urine Occult Blood Negative (Negative) Urine Nitrite Negative (Negative) Urine Bilirubin Negative (Negative) Urine Urobilinogen 0.2 (0.2-1.0) Ur Leukocyte Esterase Negative (Negative) Urine RBC 0-5 (0-5) /hpf Urine WBC 0-5 (0-5) /hpf Ur Squamous Epith Cells 0-5 (0-5) /hpf Urine Bacteria Few (FEW) /hpf Urine Mucus Few (FEW) /hpf Influenza Type A RNA (NEGATIVE) Influenza Type B RNA (NEGATIVE) SARS-CoV-2 RNA (NOA) (NEGATIVE) MRSA (PCR) Blood Type Gel Antibody Screen Result Diagrams: 02/09/21 06:16 02/09/21 06:16 Sepsis Event Note - Evaluation Sepsis Screening Result: No Definite Risk - Focused Exam Vital Signs: Vital Signs Temp Pulse Resp BP Pulse Ox 02/09/21 04:45 37.2 C 73 14 147/76 H 97 02/08/21 20:21 37.6 C 83 14 125/84 99 - Problem List (1) Depression SNOMED Code(s): 14057556 ICD Code: F32.9 - MAJOR DEPRESSIVE DISORDER, SINGLE EPISODE, UNSPECIFIED Status: Acute Current Visit: Yes (2) Acid reflux SNOMED Code(s): 620903377 ICD Code: K21.9 - GASTRO-ESOPHAGEAL REFLUX DISEASE WITHOUT ESOPHAGITIS Status: Acute Current Visit: Yes (3) Closed intertrochanteric fracture of left femur SNOMED Code(s): 52159797, 01795203875518425 ICD Code: S72.142A - DISPLACED INTERTROCHANTERIC FRACTURE OF LEFT FEMUR, INIT Status: Acute Current Visit: Yes Qualifiers: Encounter type: initial encounter Fracture alignment: nondisplaced Qualified Code(s): S72.145A - Nondisplaced intertrochanteric fracture of left femur, initial encounter for closed fracture (4) Anemia SNOMED Code(s): 192019532 ICD Code: D64.9 - ANEMIA, UNSPECIFIED Status: Acute Current Visit: No Qualifiers: Anemia type: other cause Other causes of anemia: other cause, not classified Qualified Code(s): D64.89 - Other specified anemias Problem List Initiated/Reviewed/Updated: Yes Orders Last 24hrs: Active Orders 24 hr Category Date Time Status Patient Status [ADT] Routine ADT 02/09/21 06:47 Active Antiembolic Devices [RC] PER UNIT ROUTINE Care 02/09/21 06:55 Active May Shower [RC] ASDIRECTED Care 02/09/21 06:54 Active Notify Provider Consults [RC] ASDIRECTED Care 02/08/21 19:04 Active Oxygen Therapy [RC] PRN Care 02/09/21 06:55 Active Peripheral IV Care [RC] Q2HR Care 02/08/21 14:47 Active RT Incentive Spirometry [RC] Q1HWA Care 02/09/21 06:54 Active Vital Signs [RC] PER UNIT ROUTINE Care 02/09/21 06:55 Active Consult to Physician [CONS] Routine Cons 02/08/21 18:39 Active OT Evaluation and Treatment [CONS] Routine Cons 02/09/21 06:54 Active PT Evaluation and Treatment [CONS] Routine Cons 02/09/21 06:54 Active Nothing per Oral After Midnight Diet [DIET] Diet 02/08/21 Dinner Active Hip Min 1V w Pelvis Lt [CR] Routine Exams 02/09/21 06:54 Ordered Hip wo Cont Lt [CT] Stat Exams 02/08/21 13:44 Taken CBC W/O DIFF,HEMOGRAM [HEME] AM Lab 02/10/21 05:11 Ordered CBC WITH AUTO DIFF [HEME] Routine Lab 02/09/21 06:16 Results COMPREHENSIVE METABOLIC PN,CMP [CHEM] AM Lab 02/10/21 05:11 Ordered Cyclobenzaprine [Flexeril] Med 02/09/21 06:54 Ordered 10 mg PO TID PRN Docusate Sodium [Colace] Med 02/09/21 21:00 Ordered 100 mg PO BID Famotidine [Pepcid] Med 02/09/21 07:00 Ordered 20 mg PO Q12H Magnesium Hydroxide [Milk of Magnesia] Med 02/09/21 06:54 Ordered 30 ml PO BID PRN Morphine Med 02/08/21 22:12 Active 2 mg IVPUSH Q4H PRN Naloxone [Narcan] Med 02/09/21 06:54 Ordered 0.1 mg IVPUSH Q5M PRN Ondansetron [Zofran] Med 02/09/21 06:54 Ordered 4 mg IVPUSH Q6H PRN Ondansetron [Zofran] Med 02/08/21 16:33 Active 4 mg IVPUSH Q8H PRN Sennosides [Senna] Med 02/09/21 06:54 Ordered 8.6 mg PO BID PRN Sodium Chloride 0.9% [Normal Saline] 1,000 ml Med 02/08/21 20:45 Active IV ASDIRECTED Sodium Chloride 0.9% [Saline Flush] Med 02/08/21 14:47 Active 10 ml FLUSH ASDIRECTED PRN bisacodyL [Dulcolax] Med 02/09/21 06:54 Ordered 5 mg PO DAILY PRN oxyCODONE Med 02/09/21 06:54 Ordered 5 - 10 mg PO Q4H PRN Antiembolic Hose [OM.PC] Routine Oth 02/09/21 06:54 Ordered Ice Therapy [OM.PC] Per Unit Routine Oth 02/09/21 06:55 Ordered Peripheral IV Insertion Adult [OM.PC] Routine Oth 02/08/21 14:47 Ordered Sequential Compression Device [OM.PC] Per Unit Routine Oth 02/09/21 06:54 Ordered Weight bearing status [OM.PC] Routine Oth 02/08/21 16:33 Ordered Resuscitation Status Routine Resus Stat 02/08/21 16:33 Ordered Medication Orders Bisacodyl (Bisacodyl 5 Mg Tab) 5 mg PO DAILY PRN PRN Reason: Constipation Cyclobenzaprine HCl (Cyclobenzaprine 10 Mg Tab) 10 mg PO TID PRN PRN Reason: Spasms Docusate Sodium (Docusate Sodium 100 Mg Cap) 100 mg PO BID VASILE Famotidine (Famotidine 20 Mg Tab) 20 mg PO Q12H VASILE Sodium Chloride (Normal Saline) 1,000 mls @ 150 mls/hr IV ASDIRECTED VASILE Last Admin: 02/09/21 04:20 Dose: 150 mls/hr Documented by: Infusion: 02/09/21 04:15 Dose: 150 mls/hr Documented by: Admin: 02/08/21 21:34 Dose: 150 mls/hr Documented by: TRACEY Magnesium Hydroxide (Magnesium Hydroxide 400 Mg/5 Ml Susp 30 Ml Cup) 30 ml PO BID PRN PRN Reason: Constipation Morphine Sulfate (Morphine 2 Mg/Ml Syringe) 2 mg IVPUSH Q4H PRN PRN Reason: Pain Last Admin: 02/09/21 04:43 Dose: 2 mg Documented by: Admin: 02/09/21 00:37 Dose: 2 mg Documented by: YENNI Naloxone HCl (Naloxone 0.4 Mg/Ml Sdv) 0.1 mg IVPUSH Q5M PRN PRN Reason: Oversedation Ondansetron HCl (Ondansetron 4 Mg/2 Ml Sdv) 4 mg IVPUSH Q8H PRN PRN Reason: Nausea Last Admin: 02/09/21 04:41 Dose: 4 mg Documented by: TRACEY Ondansetron HCl (Ondansetron 4 Mg/2 Ml Sdv) 4 mg IVPUSH Q6H PRN PRN Reason: Nausea/Vomiting Oxycodone HCl (Oxycodone 5 Mg Tab) 5 - 10 mg PO Q4H PRN PRN Reason: Pain Senna (Sennosides 8.6 Mg Tab) 8.6 mg PO BID PRN PRN Reason: Constipation Sodium Chloride (Sodium Chloride 0.9% 10 Ml Syringe) 10 ml FLUSH ASDIRECTED PRN PRN Reason: Keep Vein Open Last Admin: 02/08/21 15:29 Dose: 10 ml Documented by: SIRISHA Assessment/Plan Comment:: The patient is a 55-year-old lady who is being admitted for left IT fracture. The patient is scheduled for orthopedic surgery. The patient also has a history of anemia and this will be monitored very closely and if her hemoglobin drops below 7.0 g/dL will consider transfusion. The patient also has a history of depression and as a result that her home medications will be continued. The patient has been recommended to have an osteoporosis screen as an outpatient due to her hip fracture. Orthopedic surgeon has been consulted. Repeat laboratory studies for the morning. Physical therapy will also be ordered. Should be appropriate for discharge in 1 to 2 days depending upon orthopedic surgeons recommendations. - Mortality Measure Prognosis:: Good
[2021-02-09] MEDS ORDERED: Ondansetron 4 MG Tab.DIS PO PRN (07:10)
[2021-02-09] MEDS ORDERED: Acetaminophen 325 MG Tab PO PRN (07:10)
--- NOTE | 2021-02-09 08:49 | PCM.PREANE ---
Preanesthetic Assessment - Procedure Proposed Procedure: pinning of left hip fracture - Anesthesia/Transfusion/Family Hx Anesthesia History: Prior Anesthesia Without Reaction Family History of Anesthesia Reaction: No Transfusion History: No Prior Transfusion(s) - Review of Systems General: No Symptoms Pulmonary: No Symptoms Cardiovascular: No Symptoms Gastrointestinal: Nausea Neurological: No Symptoms Other: Reports: None - Physical Assessment NPO Status Date: 02/08/21 NPO Status Time: 00:00 Vital Signs: Last Vital Signs Temp 37.1 C 02/09/21 07:38 Pulse 65 02/09/21 07:38 Resp 16 02/09/21 07:38 BP 148/76 H 02/09/21 07:38 Pulse Ox 100 02/09/21 08:04 Height: 1.68 m Weight: 57.742 kg ASA Class: 2 Mental Status: Alert & Oriented x3 Airway Class: Mallampati = 1 Dentition: Reports: Normal Dentition Thyro-Mental Finger Breadths: 3 Mouth Opening Finger Breadths: 3 ROM/Head Extension: Full Lungs: Clear to Auscultation, Normal Respiratory Effort Cardiovascular: Regular Rate, Regular Rhythm - Lab Values: Laboratory Last Values WBC 5.31 K/mm3 (3.98-10.04) 02/09/21 06:16 RBC 3.97 M/mm3 (3.98-5.22) L 02/09/21 06:16 Hgb 8.9 gm/dl (11.2-15.7) L D 02/09/21 06:16 Hct 30.4 % (34.1-44.9) L 02/09/21 06:16 MCV 76.6 fl (79.4-94.8) L 02/09/21 06:16 MCH 22.4 pg (25.6-32.2) L 02/09/21 06:16 MCHC 29.3 g/dl (32.2-35.5) L 02/09/21 06:16 RDW Std Deviation 44.0 fL (36.4-46.3) 02/09/21 06:16 Plt Count 389 K/mm3 (182-369) H D 02/09/21 06:16 MPV 9.8 fl (9.4-12.3) 02/09/21 06:16 Neut % (Auto) 65.5 % (34.0-71.1) 02/09/21 06:16 Lymph % (Auto) 18.8 % (19.3-51.7) L 02/09/21 06:16 [place] % (Auto) 12.8 % (4.7-12.5) H 02/09/21 06:16 Eos % (Auto) 2.1 (0.7-5.8) 02/09/21 06:16 Baso % (Auto) 0.6 % (0.1-1.2) 02/09/21 06:16 Neut # (Auto) 3.48 K/mm3 (1.56-6.13) 02/09/21 06:16 Lymph # (Auto) 1.00 K/mm3 (1.18-3.74) L 02/09/21 06:16 [place] # (Auto) 0.68 K/mm3 (0.24-0.36) H 02/09/21 06:16 Eos # (Auto) 0.11 K/mm3 (0.04-0.36) 02/09/21 06:16 Baso # (Auto) 0.03 K/mm3 (0.01-0.08) 02/09/21 06:16 Manual Slide Review Abnormal smear 02/09/21 06:16 PT 9.9 SECONDS (9.7-12.0) 02/08/21 14:56 INR < 0.93 02/08/21 14:56 APTT 24.0 SECONDS (21.7-31.4) 02/08/21 14:56 Sodium 142 mEq/L (136-145) 02/09/21 06:16 Potassium 4.0 mEq/L (3.5-5.1) 02/09/21 06:16 Chloride 108 mEq/L (98-107) H 02/09/21 06:16 Carbon Dioxide 26 mEq/L (21-32) 02/09/21 06:16 Anion Gap 12.0 (5-15) 02/09/21 06:16 BUN 4 mg/dL (7-18) L 02/09/21 06:16 Creatinine 0.6 mg/dL (0.55-1.02) 02/09/21 06:16 Est Cr Clr Drug Dosing 95.43 mL/min 02/09/21 06:16 Estimated GFR (MDRD) > 60 mL/min (>60) 02/09/21 06:16 BUN/Creatinine Ratio 6.7 (14-18) L 02/09/21 06:16 Glucose 95 mg/dL (74-106) 02/09/21 06:16 Calcium 8.2 mg/dL (8.5-10.1) L 02/09/21 06:16 Total Bilirubin 0.6 mg/dL (0.2-1.0) 02/09/21 06:16 AST 93 U/L (15-37) H 02/09/21 06:16 ALT 56 U/L (14-59) 02/09/21 06:16 Alkaline Phosphatase 132 U/L (46-116) H 02/09/21 06:16 Total Protein 5.9 g/dl (6.4-8.2) L 02/09/21 06:16 Albumin 2.9 g/dl (3.4-5.0) L 02/09/21 06:16 Globulin 3.0 gm/dL 02/09/21 06:16 Albumin/Globulin Ratio 1.0 (1-2) 02/09/21 06:16 Urine Color Yellow (Yellow) 02/08/21 18:52 Urine Appearance Clear (Clear) 02/08/21 18:52 Urine pH 6.0 (5.0-8.0) 02/08/21 18:52 Ur Specific Elizabeth > or = 1.030 (1.005-1.030) 02/08/21 18:52 Urine Protein Negative (Negative) 02/08/21 18:52 Urine Glucose (UA) Negative (Negative) 02/08/21 18:52 Urine Ketones Negative (Negative) 02/08/21 18:52 Urine Occult Blood Negative (Negative) 02/08/21 18:52 Urine Nitrite Negative (Negative) 02/08/21 18:52 Urine Bilirubin Negative (Negative) 02/08/21 18:52 Urine Urobilinogen 0.2 (0.2-1.0) 02/08/21 18:52 Ur Leukocyte Esterase Negative (Negative) 02/08/21 18:52 Urine RBC 0-5 /hpf (0-5) 02/08/21 18:52 Urine WBC 0-5 /hpf (0-5) 02/08/21 18:52 Ur Squamous Epith Cells 0-5 /hpf (0-5) 02/08/21 18:52 Urine Bacteria Few /hpf (FEW) 02/08/21 18:52 Urine Mucus Few /hpf (FEW) 02/08/21 18:52 Influenza Type A RNA Negative (NEGATIVE) 02/08/21 14:42 Influenza Type B RNA Negative (NEGATIVE) 02/08/21 14:42 SARS-CoV-2 RNA (NOA) Positive (NEGATIVE) H 02/08/21 14:42 MRSA (PCR) Negative 02/08/21 16:58 Blood Type A POSITIVE 02/08/21 14:56 Gel Antibody Screen Negative 02/08/21 14:56 - Imaging/EKG Impressions: EKG NSR rate of 70 - Allergies Allergies/Adverse Reactions: Allergies Allergy/AdvReac Type Severity Reaction Status Date / Time cephalexin [From Keflex] Allergy Hives Verified 02/08/21 12:22 - Blood Blood Available: Yes Product(s) Available: PRBC - Anesthesia Plan Pre-Op Medication Ordered: None - Acknowledgements Anesthesia Type Planned: Spinal Pt an Appropriate Candidate for the Planned Anesthesia: Yes Alternatives and Risks of Anesthesia Discussed w Pt/Guardian: Yes Pt/Guardian Understands and Agrees with Anesthesia Plan: Yes PreAnesthesia Questionnaire HEENT History: Reports: Impaired Vision Other HEENT History: Glasses Cardiovascular History: Reports: None Respiratory History: Reports: None Gastrointestinal History: Reports: GERD Other Gastrointestinal History: epigastric pain, nausea/vomiting, duodenal ulcer Genitourinary History: Reports: None LOAN MANAGER History: Reports: Endometriosis, Other (See Below), Other OB/BYN History: pelvic pain Musculoskeletal History: Reports: None, Other (See Below) Other Musculoskeletal History: R hip pain, L knee replacement. left shoulder pain, left knee pain, left rotator cuff tear Neurological History: Reports: None Psychiatric History: Reports: Anxiety Other Psychiatric History: fatigue, insomnia, grieving Endocrine/Metabolic History: Reports: None Hematologic History: Reports: None Immunologic History: Reports: None Oncologic (Cancer) History: Reports: None Dermatologic History: Reports: None Other Dermatologic History: Can somewhat easily get hives. - Infectious Disease History Infectious Disease History: Reports: SARS Other Infectious Disease History: Covid in August - Past Surgical History Head Surgeries/Procedures: Reports: None Cardiovascular Surgical History: Reports: None Respiratory Surgical History: Reports: None GI Surgical History: Reports: Appendectomy, Bariatric Procedure, Cholecystectomy, Colonoscopy Female Surgical History: Reports: Breast Reduction, Hysterectomy Endocrine Surgical History: Reports: None Neurological Surgical History: Reports: None Musculoskeletal Surgical History: Reports: Arthroscopic Knee, Shoulder Surgery Oncologic Surgical History: Reports: None Dermatological Surgical History: Reports: None - SUBSTANCE USE Tobacco Use Status *Q: Never Tobacco User Tobacco Use Within Last Twelve Months: No Second Hand Smoke Exposure: No Days Per Week of Alcohol Use: 1 Number of Drinks Per Day: 0 Total Drinks Per Week: 0 Recreational Drug Use History: No - HOME MEDS Home Medications: Home Meds Omeprazole 10 mg PO DAILY 02/08/21 [History] Vortioxetine Hydrobromide [Trintellix] 10 mg PO DAILY 02/08/21 [History] - CURRENT (IN HOUSE) MEDS Current Meds: Current Medications Acetaminophen (Acetaminophen 325 Mg Tab) 650 mg PO Q4H PRN PRN Reason: Pain (Mild 1-3)/fever Bisacodyl (Bisacodyl 5 Mg Tab) 5 mg PO DAILY PRN PRN Reason: Constipation Cyclobenzaprine HCl (Cyclobenzaprine 10 Mg Tab) 10 mg PO TID PRN PRN Reason: Spasms Docusate Sodium (Docusate Sodium 100 Mg Cap) 100 mg PO BID [facility] Famotidine (Famotidine 20 Mg Tab) 20 mg PO Q12H [facility] Sodium Chloride (Normal Saline) 1,000 mls @ 150 mls/hr IV ASDIRECTED [facility] Last Admin: 02/09/21 04:20 Dose: 150 mls/hr Documented by: Clindamycin Phosphate 900 mg/ (Premix) 50 mls @ 100 mls/hr IV Q6H [facility] Magnesium Hydroxide (Magnesium Hydroxide 400 Mg/5 Ml Susp 30 Ml Cup) 30 ml PO BID PRN PRN Reason: Constipation Morphine Sulfate (Morphine 2 Mg/Ml Syringe) 2 mg IVPUSH Q4H PRN PRN Reason: Pain Last Admin: 02/09/21 04:43 Dose: 2 mg Documented by: Naloxone HCl (Naloxone 0.4 Mg/Ml Sdv) 0.1 mg IVPUSH Q5M PRN PRN Reason: Oversedation Vortioxetine Hydrobromide [ Trintellix] 5 Mg Tab Ptom 10 mg PO DAILY [facility] Ondansetron HCl (Ondansetron 4 Mg/2 Ml Sdv) 4 mg IVPUSH Q8H PRN PRN Reason: Nausea Last Admin: 02/09/21 04:41 Dose: 4 mg Documented by: Ondansetron HCl (Ondansetron 4 Mg/2 Ml Sdv) 4 mg IVPUSH Q6H PRN PRN Reason: Nausea/Vomiting Ondansetron HCl (Ondansetron 4 Mg Tab.Dis) 4 mg PO Q6H PRN PRN Reason: nausea, able to take PO Oxycodone HCl (Oxycodone 5 Mg Tab) 5 - 10 mg PO Q4H PRN PRN Reason: Pain Senna (Sennosides 8.6 Mg Tab) 8.6 mg PO BID PRN PRN Reason: Constipation Sodium Chloride (Sodium Chloride 0.9% 10 Ml Syringe) 10 ml FLUSH ASDIRECTED PRN PRN Reason: Keep Vein Open Last Admin: 02/08/21 15:29 Dose: 10 ml Documented by: Discontinued Medications Al Hydroxide/Mg Hydroxide (Aluminum Hydroxide/Magnesium Hydroxide/Simethicone Susp 30 Ml Cup) 30 ml PO ONETIME ONE Stop: 02/08/21 20:42 Last Admin: 02/08/21 21:32 Dose: 30 ml Documented by: Hydromorphone HCl (Hydromorphone 0.5 Mg/0.5 Ml Syringe) 0.5 mg IM ONETIME ONE Stop: 02/08/21 12:29 Last Admin: 02/08/21 12:46 Dose: 0.5 mg Documented by: Hydromorphone HCl (Hydromorphone 0.5 Mg/0.5 Ml Syringe) 0.5 mg IM ONETIME ONE Stop: 02/08/21 13:49 Last Admin: 02/08/21 13:51 Dose: 0.5 mg Documented by: Hydromorphone HCl (Hydromorphone 0.5 Mg/0.5 Ml Syringe) 0.5 mg IVPUSH Q4H PRN PRN Reason: Pain Last Admin: 02/08/21 20:47 Dose: 0.5 mg Documented by: Sodium Chloride (Normal Saline) 1,000 mls @ 150 mls/hr IV ONETIME ONE Stop: 02/08/21 21:26 Last Admin: 02/08/21 15:20 Dose: 150 mls/hr Documented by: Cefazolin Sodium/Dextrose 2 gm (/ Premix) 50 mls @ 100 mls/hr IV Q8H [facility] Stop: 02/09/21 23:29
[2021-02-09] MEDS ORDERED: VORTIOXETINE HYDROBROMIDE 5 MG PO SCH (09:00)
[2021-02-09] MEDS ORDERED: Propofol 200 MG/20 ML SDV ONE ×3 (09:50→10:44)
[2021-02-09] MEDS ORDERED: Ondansetron 4 MG/2 ML SDV ONE (09:50)
[2021-02-09] MEDS ORDERED: Midazolam 1 MG/ML 2 ML SDV ONE (09:50)
[2021-02-09] MEDS ORDERED: fentaNYL 100 MCG/2 ML SDV ONE ×2 (09:50→11:23)
[2021-02-09] MEDS ORDERED: Lidocaine 1% 4 ML ONE (09:52)
[2021-02-09] MEDS ORDERED: ceFAZolin 1 GM Vial ONE (10:27)
[2021-02-09] MEDS ORDERED: Bupivacaine 0.25% 10 ML SDV ONE (10:46)
[2021-02-09] MEDS ORDERED: Lactated Ringers 1,000 ML ONE (11:19)
[2021-02-09] MEDS ORDERED: Ketorolac 30 MG/ML SDV ONE (11:26)
[2021-02-09] MEDS ORDERED: fentaNYL 100 MCG/2 ML SDV IVPUSH PRN (11:33)
--- NOTE | 2021-02-09 11:35 | PCM.POSTAN ---
POST ANESTHESIA ASSESSMENT - MENTAL STATUS Mental Status: Alert, Oriented - VITAL SIGNS Vital Signs: Last Vital Signs Temp 37.1 C 02/09/21 07:38 Pulse 65 02/09/21 07:38 Resp 16 02/09/21 07:38 BP 148/76 H 02/09/21 07:38 Pulse Ox 100 02/09/21 08:04 - RESPIRATORY Respiratory Status: Respiratory Rate WNL, Airway Patent, O2 Saturation Stable, Supplemental Oxygen - CARDIOVASCULAR CV Status: Pulse Rate WNL, Blood Pressure Stable - GASTROINTESTINAL GI Status: No Symptoms - PAIN Pain Score: 3 - POST OP HYDRATION Hydration Status: Adequate & Stable - OBSERVATIONS Free Text/Narrative:: no anesthesia complications noted
--- NOTE | 2021-02-09 12:14 | CR ---
Left hip: Multiple radiographs left hip were obtained utilizing C-arm device in the operating room. Comparison: Prior left hip CT study of 02/08/21. Study shows placement of three cannulated screws across a subcapital region affixing previous subcapital fracture. Tip of the screws lie within the femoral head. Fluoroscopy time is given as 75.8 seconds. Impression: 1. Procedural study as noted above. Diagnostic code #2
--- NOTE | 2021-02-09 14:30 | CR ---
Pelvis and left hip: AP view of the pelvis was obtained as well as crosstable lateral views of the left hip. Comparison: Prior operative study performed earlier in the same day as well as prior CT left hip exam of 02/08/21. Three cannulated screws are noted crossing the subcapital fracture within the left hip. Osteopenia is noted. Prior lumbar spine surgery is seen. Impression: 1. Previous surgery within the left hip affixing previous subcapital fracture. 2. Other findings as noted above. Diagnostic code #2
--- NOTE | 2021-02-09 14:43 | CT ---
Left hip CT: Multiple axial sections were obtained through the left hip. Reconstructed coronal and sagittal images were obtained. Comparison: Prior left femur study performed earlier on the same day (1:09 PM) Findings: Slightly impacted subcapital fracture within the left hip is noted. Joint space within left hip is preserved. Acetabulum is intact. No additional femur abnormality is seen within the proximal femur. Impression: 1. Slightly impacted subcapital fracture within the left femur. 2. No other acute abnormality is appreciated. Diagnostic code #3 MTDD
--- NOTE | 2021-02-09 15:08 | PCM48HPAN ---
Post Anesthesia Note - EVALUATION WITHIN 48HRS OF ANESTHETIC Vital Signs in Normal Range: Yes Patient Participated in Evaluation: Yes Respiratory Function Stable: Yes Airway Patent: Yes Cardiovascular Function Stable: Yes Hydration Status Stable: Yes Pain Control Satisfactory: Yes Nausea and Vomiting Control Satisfactory: Yes Mental Status Recovered: Yes Vital Signs: Last Vital Signs Temp 36.1 C 02/09/21 12:00 Pulse 60 02/09/21 12:00 Resp 10 L 02/09/21 12:00 BP 121/78 02/09/21 12:00 Pulse Ox 99 02/09/21 12:00 - COMMENTS/OBSERVATIONS Free Text/Narrative:: no anesthesia complications noted
[2021-02-09] MEDS ORDERED: Aluminum Hydroxide/Magnesium Hydroxide/Simethicone Susp 30 ML Cup PO PRN (15:28)
[2021-02-09 16:26] VITALS: PULSE 59
[2021-02-09 16:42] VITALS: BP 130/80
--- NOTE | 2021-02-09 17:40 | PCM.OPNOTE ---
- General Post-Op/Procedure Note Date of Surgery/Procedure: 02/09/21 Operative Procedure(s): closed reduction percutaneous pinning of left subcapital femoral neck fracture Pre Op Diagnosis: valgus impacted left subcapital femoral neck fracture Post-Op Diagnosis: Same Anesthesia Technique: Local, MAC, Spinal Primary Surgeon: Carlos Dkyes Anesthesia Provider: Darek Guerrero Ultrasound Applications Specialist: Lisa Roy EBL in mLs: 5 Complications: None Condition: Good Free Text/Narrative:: Intake & Output 02/09/21 02/09/21 02/09/21 06:59 14:59 22:59 Intake Total 2400 100 Output Total 675 Balance 1725 100
[2021-02-09] MEDS ORDERED: Famotidine 20 MG Tab PO SCH (21:00)
[2021-02-09] MEDS ORDERED: Docusate Sodium 100 MG Cap PO SCH (21:00)
[2021-02-10] MEDS ORDERED: OMEPRAZOLE 10 MG PO SCH (09:00)
--- NOTE | 2021-02-10 09:21 | PCM.DCSUM1 ---
Discharge Summary - Hospital Course Brief History: Rosamaria is a 55 yo female who fell off a stool on 02-08-2021 and injured her left hip. She was evaluated by the Emergency Department on that day and was admitted to Hospital. She underwent percutaneous screw fixation of left subcapital femur fracture with Dr. Dykes on 02-09-2021. The procedure was completed under spinal anesthesia with sedation. The pt tolerated the procedure well and returned to the Medical-Surgical Unit post-operatively. Medical management was provided by the Hospitalist service. The pt's Hospital course was uneventful. SCDs and TEDs were used and the pt was given a rx for Xarelto to begin on POD#1. An Aquacel dressing was placed at the incision site at the time of surgery and remained clean and dry. The pt participated in P.T. and O.T. and progressed well. She was allowed to TTWB and used a FWW for mobility. On POD#0, the pt was deemed appropriate to discharge to home. - Discharge Data Discharge Date: 02/09/21 Discharge Disposition: Home, Self-Care 01 Condition: Good - Referral to Home Health Primary Care Physician: PCP None - Patient Summary/Data Operative Procedure(s) Performed: closed reduction percutaneous pinning of left subcapital femoral neck fracture Consults: Consultations 02/09/21 06:54 OT Evaluation and Treatment [CONS] Routine PT Evaluation and Treatment [CONS] Routine 02/09/21 09:24 Consult to Physician [CONS] Routine - Patient Instructions Diet: Usual Diet as Tolerated Activity: Apply Ice, As Tolerated, Elevate Extremity Activity, Other: Pressure through the left leg only for balance. Driving: Do Not Drive Showering/Bathing: May Shower Wound/Incision Care: Keep Operative Site/Wound Site Clean and Dry, Do NOT Change Dressing Notify Provider of: Fever, Increased Pain, Swelling and Redness, Drainage, Nausea and/or Vomiting Other/Special Instructions: Please get up and moving around EVERY HOUR while awake. This helps to prevent blood clots. Please use your walker and have help with mobility as needed. Take a short walk in your home every hour while awake. You may place your foot on the floor for balance, however, do not place measurable weight through your surgical leg. Use a walker or crutches with all mobility. Please take one tablet of Xarelto blood thinner medication daily. The medication is being used to help prevent blood clots. Start the medication on the day after surgery (02-10-2021) and take one tablet daily for 35 days. Use the pain medication as needed. The medication may cause drowsiness and constipation. Contact your primary care provider for instructions if you are constipated. You may use a stool softener like docusate sodium or Colace 100mg twice daily and/or a laxative like Miralax daily for constipation. Increase your water and fiber intake while you are using the pain medication. Discontinue use of the pain medication as soon as able. Please do not use other medications that may cause drowsiness (other pain medications, anxiety pills, cold medications, sleeping pills, etc) while using the prescription pain medication. Discontinue use of the prescription pain medication as soon as able. Do not use alcohol while using the pain medication. You may use acetaminophen or Tylenol for pain management, however, please ensure you are not using over 4000 mg or 4 grams of acetaminophen per day from all sources. At this time, please do not use ibuprofen (Motrin, Advil) or naproxen (Aleve) for pain management as you are using the Xarelto. If you can tolerate use of STACY hose, please wear the STACY hose during the day and you may remove these at night. Elevate the limb to decrease swelling. Place ice to the area often. Place a towel between your skin and the blue pad. Use the incentive spirometer often. Take deep breaths throughout the day. Please keep the dressing in place until follow-up. Notify the Clinic if the dressing becomes saturated. Increase your protein intake while you are healing. If you have diabetes, please closely monitor your blood sugars and notify your primary care provider with abnormal v alues. Elevated blood sugars increases the risk of infection. Call the Clinic with questions or concerns - [phone] and leave a message for the nurse. Your call will be returned. - Discharge Plan *PRESCRIPTION DRUG MONITORING PROGRAM REVIEWED*: No *COPY OF PRESCRIPTION DRUG MONITORING REPORT IN PATIENT LEOLA: No Prescriptions/Med Rec: Cyclobenzaprine [Flexeril] 10 mg PO BID PRN #20 tablet PRN Reason: Spasms oxyCODONE 5 - 10 mg PO Q6H PRN #30 tablet PRN Reason: Pain Rivaroxaban [Xarelto] 10 mg PO DAILY #35 tab Home Medications: Home Meds Omeprazole 10 mg PO DAILY 02/08/21 [History] Vortioxetine Hydrobromide [Trintellix] 10 mg PO DAILY 02/08/21 [History] Acetaminophen [Tylenol] 650 mg PO Q4H PRN tablet 02/09/21 [Rx] Cyclobenzaprine [Flexeril] 10 mg PO BID PRN #20 tablet 02/09/21 [Rx] Docusate Sodium [Colace] 100 mg PO BID cap 02/09/21 [Rx] Magnesium Hydroxide [Milk of Magnesia] 30 ml PO BID PRN cup 02/09/21 [Rx] Patient's Own Medication [Ptom] 0 each PO DAILY each 02/09/21 [Rx] Rivaroxaban [Xarelto] 10 mg PO DAILY #35 tab 02/09/21 [Rx] Sennosides [Senna] 8.6 mg PO BID PRN tablet 02/09/21 [Rx] oxyCODONE 5 - 10 mg PO Q6H PRN #30 tablet 02/09/21 [Rx] Patient Handouts: Sepsis, Diagnosis, Adult Forms: ED Department Discharge Referrals: PCP,None [Primary Care Provider] - - Discharge Summary/Plan Comment DC Time >30 min.: No - Patient Data Vitals - Most Recent: Last Vital Signs Temp 97.9 F 02/09/21 12:15 Pulse 59 L 02/09/21 14:01 Resp 16 02/09/21 12:15 BP 130/80 02/09/21 16:36 Pulse Ox 100 02/09/21 14:01 Weight - Most Recent: 127 lb I&O - Last 24 hours: Intake & Output 02/09/21 02/10/21 02/10/21 22:59 06:59 14:59 Intake Total 1450 Output Total 600 Balance 850 Med Orders - Current: Current Medications Discontinued Medications Acetaminophen (Acetaminophen 325 Mg Tab) 650 mg PO Q4H PRN PRN Reason: Pain (Mild 1-3)/fever Last Admin: 02/09/21 15:26 Dose: 650 mg Documented by: Al Hydroxide/Mg Hydroxide (Aluminum Hydroxide/Magnesium Hydroxide/Simethicone Susp 30 Ml Cup) 30 ml PO ONETIME ONE Stop: 02/08/21 20:42 Last Admin: 02/08/21 21:32 Dose: 30 ml Documented by: Al Hydroxide/Mg Hydroxide (Aluminum Hydroxide/Magnesium Hydroxide/Simethicone Susp 30 Ml Cup) 30 ml PO Q4H PRN PRN Reason: Heartburn Last Admin: 02/09/21 15:33 Dose: 30 ml Documented by: Bisacodyl (Bisacodyl 5 Mg Tab) 5 mg PO DAILY PRN PRN Reason: Constipation Bupivacaine HCl (Bupivacaine 0.25% 10 Ml Sdv) Confirm Administered Dose 10 ml .ROUTE .STK-MED ONE Stop: 02/09/21 10:47 Last Admin: 02/09/21 10:30 Dose: 10 ml Documented by: Cefazolin Sodium (Cefazolin 1 Gm Vial) Confirm Administered Dose 2 gm .ROUTE .STK-MED ONE Stop: 02/09/21 10:28 Cyclobenzaprine HCl (Cyclobenzaprine 10 Mg Tab) 10 mg PO TID PRN PRN Reason: Spasms Docusate Sodium (Docusate Sodium 100 Mg Cap) 100 mg PO BID [facility] Famotidine (Famotidine 20 Mg Tab) 20 mg PO Q12H [facility] Fentanyl (Fentanyl 100 Mcg/2 Ml Sdv) Confirm Administered Dose 100 mcg .ROUTE .STK-MED ONE Stop: 02/09/21 09:51 Fentanyl (Fentanyl 100 Mcg/2 Ml Sdv) Confirm Administered Dose 100 mcg .ROUTE .STK-MED ONE Stop: 02/09/21 11:24 Fentanyl (Fentanyl 100 Mcg/2 Ml Sdv) 50 mcg IVPUSH Q5M PRN PRN Reason: Pain Stop: 02/09/21 18:00 Hydromorphone HCl (Hydromorphone 0.5 Mg/0.5 Ml Syringe) 0.5 mg IM ONETIME ONE Stop: 02/08/21 12:29 Last Admin: 02/08/21 12:46 Dose: 0.5 mg Documented by: Hydromorphone HCl (Hydromorphone 0.5 Mg/0.5 Ml Syringe) 0.5 mg IM ONETIME ONE Stop: 02/08/21 13:49 Last Admin: 02/08/21 13:51 Dose: 0.5 mg Documented by: Hydromorphone HCl (Hydromorphone 0.5 Mg/0.5 Ml Syringe) 0.5 mg IVPUSH Q4H PRN PRN Reason: Pain Last Admin: 02/08/21 20:47 Dose: 0.5 mg Documented by: Sodium Chloride (Normal Saline) 1,000 mls @ 150 mls/hr IV ONETIME ONE Stop: 02/08/21 21:26 Last Admin: 02/08/21 15:20 Dose: 150 mls/hr Documented by: Sodium Chloride (Normal Saline) 1,000 mls @ 150 mls/hr IV ASDIRECTED [facility] Last Admin: 02/09/21 04:20 Dose: 150 mls/hr Documented by: Cefazolin Sodium/Dextrose 2 gm (/ Premix) 50 mls @ 100 mls/hr IV Q8H [facility] Stop: 02/09/21 23:29 Lidocaine HCl (Xylocaine-Mpf 1%) Confirm Administered Dose 4 mls @ as directed .ROUTE .STK-MED ONE Stop: 02/09/21 09:53 Lactated Ringer's (Ringers, Lactated) Confirm Administered Dose 1,000 mls @ as directed .ROUTE .STK-MED ONE Stop: 02/09/21 11:20 Cefazolin Sodium/Dextrose 2 gm (/ Premix) 50 mls @ 100 mls/hr IV Q8H [facility] Stop: 02/10/21 11:29 Ketorolac Tromethamine (Ketorolac 30 Mg/Ml Sdv) Confirm Administered Dose 30 mg .ROUTE .STK-MED ONE Stop: 02/09/21 11:27 Magnesium Hydroxide (Magnesium Hydroxide 400 Mg/5 Ml Susp 30 Ml Cup) 30 ml PO BID PRN PRN Reason: Constipation Midazolam HCl (Midazolam 1 Mg/Ml 2 Ml Sdv) Confirm Administered Dose 2 mg .ROUTE .STK-MED ONE Stop: 02/09/21 09:51 Miscellaneous Medication (Phenylephrine Hcl In 0.9% Nacl 1 Mg/10 Ml Syringe) Confirm Administered Dose 1 mg .ROUTE .STK-MED ONE Stop: 02/09/21 10:12 Morphine Sulfate (Morphine 2 Mg/Ml Syringe) 2 mg IVPUSH Q4H PRN PRN Reason: Pain Last Admin: 02/09/21 04:43 Dose: 2 mg Documented by: Naloxone HCl (Naloxone 0.4 Mg/Ml Sdv) 0.1 mg IVPUSH Q5M PRN PRN Reason: Oversedation Vortioxetine Hydrobromide [ Trintellix] 5 Mg Tab Ptom 10 mg PO DAILY [facility] Last Admin: 02/09/21 10:06 Dose: Not Given Documented by: Ondansetron HCl (Ondansetron 4 Mg/2 Ml Sdv) 4 mg IVPUSH Q8H PRN PRN Reason: Nausea Last Admin: 02/09/21 04:41 Dose: 4 mg Documented by: Ondansetron HCl (Ondansetron 4 Mg/2 Ml Sdv) 4 mg IVPUSH Q6H PRN PRN Reason: Nausea/Vomiting Ondansetron HCl (Ondansetron 4 Mg Tab.Dis) 4 mg PO Q6H PRN PRN Reason: nausea, able to take PO Ondansetron HCl (Ondansetron 4 Mg/2 Ml Sdv) Confirm Administered Dose 4 mg .ROUTE .STK-MED ONE Stop: 02/09/21 09:51 Oxycodone HCl (Oxycodone 5 Mg Tab) 5 - 10 mg PO Q4H PRN PRN Reason: Pain Last Admin: 02/09/21 15:25 Dose: 10 mg Documented by: Omeprazole 10 Mg Capsule.Dr Patient's Own Med 0 each PO DAILY [facility] Propofol (Propofol 200 Mg/20 Ml Sdv) Confirm Administered Dose 200 mg .ROUTE .STK-MED ONE Stop: 02/09/21 09:51 Propofol (Propofol 200 Mg/20 Ml Sdv) Confirm Administered Dose 200 mg .ROUTE .STK-MED ONE Stop: 02/09/21 10:19 Propofol (Propofol 200 Mg/20 Ml Sdv) Confirm Administered Dose 200 mg .ROUTE .STK-MED ONE Stop: 02/09/21 10:45 Senna (Sennosides 8.6 Mg Tab) 8.6 mg PO BID PRN PRN Reason: Constipation Sodium Chloride (Sodium Chloride 0.9% 10 Ml Syringe) 10 ml FLUSH ASDIRECTED PRN PRN Reason: Keep Vein Open Last Admin: 02/08/21 15:29 Dose: 10 ml Documented by:
--- NOTE | 2021-02-16 07:32 | OR ---
DATE OF OPERATION: 02/09/2021 SURGEON: Carlos Dykes MD OPERATION PERFORMED: Closed reduction and percutaneous pinning of left subcapital femoral neck fracture. PREOPERATIVE DIAGNOSIS: Valgus impacted left subcapital femoral neck fracture. POSTOPERATIVE DIAGNOSIS: Valgus impacted left subcapital femoral neck fracture. ANESTHESIA: Local MAC with spinal. ANESTHESIA PROVIDER: Darek Guerrero CRNA. ARTIFICIAL FLY TIER: Lisa Roy PA-C. ESTIMATED BLOOD LOSS: Less than 5 mL. COMPLICATIONS: None. CONDITION: Stable. DESCRIPTION OF PROCEDURE: The patient was identified in the preoperative holding area. Proper site was marked and identified by the surgeon. The patient was taken back to the operating theater, where after adequate anesthesia, the patient was placed on a traction table. The perineal bolster was placed and well-padded. Bilateral lower extremities were placed in traction boots. The right lower extremity was placed in traction boot, and no gross or fine traction was applied, and it was placed in dependent position. Left lower extremity was placed in a traction boot, and gross traction was applied. The patient's left hip was then sterilely prepped and draped in the usual sterile fashion. OR time-out was performed. The patient received 2 g IV Ancef. At this time, three guide pins for a 6.5 cannulated Tracy screws were then placed. The first one was the inferior screw along the calcar making sure to be proximal to the lesser trochanter. This was placed under direct C-arm fluoroscopy on both AP and lateral views and found to be in proper position. Next, a superior-anterior and then superior- posterior guide pin was placed for triangular fixation of the subcapital femoral neck fracture. They were found to be in adequate anatomic reduction position on AP and lateral views. At this time, small focal incisions were made by the guide pins. The cannulated drill was then utilized on all 3 guide pins, and first two 85s and a 90 mm screw were put, but it was found that the 90 mm was going to be too long, so then we ended up doing three 85 mm screws. There were all found to be in adequate position on both AP and lateral views. At this time, the guide pins were removed. Adequate saline was irrigated through the wound, and rex were used for closure of the poke hole incisions. The patient tolerated the procedure well and was sent to PACU in stable condition. Will be touch toe weightbearing for 3 weeks. MMODAL /[id number]
== END 2021-02-09 16:40 | disposition home or self-care (01) | DRG 308 ==
LOC: JD.ED 12:08 → JD.MS 15:22 → OBSVTOIN 02-09 11:29
PROVIDERS: ADMIT Internal Medicine; ATTEND Internal Medicine
PROC: 0QH734Z Insertion of Internal Fixation Device into Left Upper Femur, Percutaneous Approach (ICD-10-PCS; principal; 2021-02-09)
DX: S72.012A Unspecified intracapsular fracture of left femur, initial encounter for closed fracture (principal); S72.145A Nondisplaced intertrochanteric fracture of left femur, initial encounter for closed fracture; W08.XXXA Fall from other furniture, initial encounter; H54.7 Unspecified visual loss; K21.9 Gastro-esophageal reflux disease without esophagitis; Z96.652 Presence of left artificial knee joint; F32.9 Major depressive disorder, single episode, unspecified; G47.00 Insomnia, unspecified; Z86.16 Personal history of COVID-19; Z90.49 Acquired absence of other specified parts of digestive tract; Z98.84 Bariatric surgery status; Z90.710 Acquired absence of both cervix and uterus; Z98.890 Other specified postprocedural states; Z88.1 Allergy status to other antibiotic agents; D64.89 Other specified anemias; U07.1 COVID-19
CPT/HCPCS: 01220; 0240U; 36415; 71045; 71045-26; 73501-26-LT; 73501-LT; 73552-26-LT; 73552-LT; 73564-26-LT; 73564-LT; 73700-26-LT; 73700-LT; 76000; 76000-26; 80053; 81001; 85025; 85610; 85730; 86850; 86900; 86901; 87641; 93005; 93010; 96372; 96374; 96375; 96376; 97110-GP; 97161-GP; 97165-GO; 97530-GO; 97535-GO; 99285; 99285-25; A9270-GY; C1713; G0378; J0690; J1170; J1885; J2250; J2270; J2370; J2405; J2704; J3010; J3490; J7030; J7120